=== PATIENT | female | born 1940 | race Caucasian/White ===

== ENCOUNTER 2024-02-12 12:40 | Emergency (ER) | payer OTHER, SELFPAY ==
[2024-02-12 13:09] VITALS: BP 130/50
[2024-02-12 13:51] LABS: % Basophils 0.3 % (0-2); % Eosinophils 0.9 % (0-6); % Immature Granulocytes 0.3 % (0-0.5); % Lymphocytes 19.2 % (20.5-51.1); % Monocytes 8.7 % (1.7-9.3); % Neutrophils 70.6 % (42.2-75.2); Absolute Eosinophils 0.1 10^3/uL (0-0.7); Absolute Lymphocytes 1.3 10^3/uL (1.2-3.4); Absolute Monocytes 0.6 10^3/uL (0.1-0.6); Absolute Neutrophils 4.6 10^3/uL (1.4-6.5); Hematocrit 39.9 % (37.0-47.0); Hemoglobin 13.5 g/dL (12.0-16.0); Mean Corp Hgb Conc. 33.8 g/dL (33.0-37.0); Mean Corpuscular Hgb 31.6 pg (27.0-31.0); Mean Corpuscular Volume 93.4 fL (81.0-99.0); Mean Platelet Volume 10.7 fL (7.4-10.4); Nucleated Red Blood Cells % 0 %; Platelet Count 224 10^3/uL (130-400); Red Blood Cell Count 4.27 10^6/uL (4.20-5.40); Red Cell Dist. Width 13.5 % (11.5-14.5); White Blood Cell Count 6.5 10^3/uL (4.8-10.8)
[2024-02-12 14:08] LABS: ALT (SGPT) 20 U/L (0-35); AST (SGOT) 34 U/L (14-36); Albumin 4.3 g/dl (3.5-5.0); Alkaline Phosphatase 65 U/L (38-126); Blood Urea Nitrogen 16 mg/dl (7-17); Calcium 9.2 mg/dl (8.4-10.2); Carbon Dioxide 24 mmol/L (22-30); Chloride 100 mmol/L (98-107); Glucose 103 mg/dl (70-99); Potassium 4.5 mmol/L (3.5-5.1); Sodium 133 mmol/L (135-145); Total Bilirubin 0.4 mg/dl (0.2-1.3); Total Protein 6.8 g/dl (6.3-8.2); eGFR > 60.00
[2024-02-12 15:09] VITALS: BMI 25.4
[2024-02-12 15:38] LABS: COVID-19 Antigen Negative (Negative)
--- NOTE | 2024-02-12 16:39 | ED.GENMED ---
History of Present Illness
General
Chief Complaint: Cold/Flu/URI Symptoms
Source: patient
Exam Limitations: none
Time Seen by Provider: 02/12/24 14:16
Nursing documentation reviewed up to this point in time: agreed with
History of Present Illness
History of Present Illness:
pt is a 83 y/o F with h/o GERD
otherwise healthy
lives with , here with sister
nearly 2 weeks uri sxs, sore throat, cough; doesn'tknow if she ever had a temp but had some chills
went to urgent care 5 days ago and said they did 'nothing for me.' no testing
she called her PCP the following day who didn't want her to come into the offic ebecause she was sick so they spoke with her over the phone and called in augmentin
pt has been taking it
she does feel a little better now than she has all week but still her sister isisted that she come in to be seen
no vomiting, diarrhea
maybe some mild forgetfulness
denies cp, ,sob
Past History
Past History
ED Past Medical History: None
ED Past Surgical History: None
Social History
Tobacco: Non-smoker
Alcohol: None
Drug: None
Personal:
Living: with family
Review of Systems
Review of Systems
Allergies reviewed?: Yes
All Other Systems: Not applicable
Phy Exam
Physical Exam
Physical Exam:
GENERAL: Alert , in no apparent distress
EYE: pupils equal and reactive
NECK: Supple
ENT: b/l TM s clear, pharynx erythematous but no tonsillar hypertrophy or exudates
CARDIAC: Regular rate and rhythm, no edema
LUNGS: Clear breath sounds bilaterally, no acute respiratory distress, no wheezes/rales/rhonchi, occ cough
ABDOMEN: Soft, without focal tenderness, no r/g, no cvat, normal bowel sounds
NEUROLOGICAL: Alert and oriented, no focal neuro deficits
SKIN: Warm and dry, skin intact.
MUSCULOSKELETAL: No edema, well perfused.
PSYCH: Normal and appropriate interaction.
Course
Orders/Labs/Results
Orders:
Orders
02/12/24 13:12
Electrocardiogram (*1) Urgent
Reason for Study: Other
Other Reason for Exam: uri s/s for the last two wks
CXR2 [CR Chest - 2 Views ] Urgent
Comment:
Reason For Exam: uri s/s for the last two wks
02/12/24 13:13
EKG- Treatment ONCE
02/12/24 13:22
Complete Blood Count/With Diff Urgent
Comprehensive Metabolic Panel Urgent
02/12/24 15:08
COVID-19 Antigen Urgent
Source: Nasal Swab
Influenza A+B Rapid Molecular Urgent
STEPHANIE Source: Nasal Swab
Specimen Description:
02/12/24 17:03
Azithromycin [Zithromax] 500 mg PO NOW STA
Abnormal Lab Results
02/12/24
13:22
MCH 31.6 H pg
(27.0-31.0)
MPV 10.7 H fL
(7.4-10.4)
Lymphocytes % 19.2 L %
(20.5-51.1)
Sodium 133 L mmol/L
(135-145)
Glucose 103 H mg/dl
(70-99)
02/12/24 13:22
02/12/24 13:22
Vital Signs
Initial and Last Documented VS:
Initial Vital Signs
Temp Pulse Resp BP Pulse Ox
36.9 C 89 16 130/50 98
02/12/24 13:09 02/12/24 13:09 02/12/24 13:09 02/12/24 13:09 02/12/24 13:09
Last Documented Vital Signs
Temp Pulse Resp BP Pulse Ox
36.9 C 86 18 151/69 96
02/12/24 13:09 02/12/24 16:50 02/12/24 16:50 02/12/24 16:50 02/12/24 16:50
MDM/Problems Addressed
Differential Diagnosis Includes:
pneumonia, flu covid
MDM/Problems Addressed:
83 y/o F fairly healthy
uri sx x 2 weeks
went to and they ddin't do any testing
3 days ago got abx from her doctor over the phone augmentin
has felt still crummy but actually a little better today than other days but sister is concerned that she is a little confusedmore than usual and just wanted her checked out
pt has not had any sob
She denies chest pain and has not had a recent fever. She has just felt mostly wiped out. On exam the patient is nontoxic-appearing, awake and alert, occasionally answers a question and then corrects herself appropriately but otherwise is not
confused, her lungs sound like she has got crackles in her right base she is not in any respiratory distress. Patient's white count is normal. Her sodium is 133, BUN and creatinine are normal, and her flu was positive for influenza A. Patient's
chest x-ray shows a right lower lobe infiltrate. Discussed with ED attending, she has been on Augmentin for several days already. Patient is claiming that clinically she feels better today and that she is turning the corner. So we felt it was
reasonable to add Zithromax and continue the Augmentin and give her strict return precautions. Her sister will help make sure to check on her and bring her back if she gets worse
*Critical Care Note
Total Time (30-74mins, 75-104mins- exclusive of procedures): Not Applicable
ED Attending Note
-
Portions of this chart may have been created with voice recognition software.� Occasional wrong word or��sound alike� substitutions may have occurred due to the inherent limitations of voice recognition software.
Discharge Plan
Departure
Patient Disposition: Home (Routine Discharge)
Date of Disposition: 02/12/24
Time of Disposition: 17:06
Patient with high blood pressure during this ER visit?: No
Condition: Fair
Covid-19: Negative COVID-19
Discharge Problem:
Influenza A, Pneumonia
Instructions: Pneumonia in adults - Discharge instructions, Flu in adults - ED discharge instructions
Prescriptions:
New
azithromycin 250 mg tablet
250 mg PO DAILY 4 Days Qty: 4 0RF
Referrals:
Garland Barreto MD [Family Provider] - Follow up in 2-3 days
Activity Restrictions/Additional Instructions:
YOU TESTED POSITIVE FOR THE FLU
YOUR CHEST XRAY ALSO SHOWS A PNEUMONIA IN YOUR RIGHT LOWER LUNG
YOUR OXYGEN LEVEL WAS GOOD AND YOUR BLOOD WORK WAS REASSURING
CONTINUE TH EAUGMENTIN YOU WERE ALREADY TAKING AND ADD ZITHROMAX ONCE A DAY FOR 4 MORE DAYS STARTING TOMORROW
STYA HYDRATED
MAKE SURE YOU HAVE LOW THRESHOLD TO RETURN FOR: WORSENING BREATHING PROBLEMS, LETHARGY, NEW FEVER, VOMITING, DEHYDRTAION, CONFUSION, WEAKNESS ETC
Interventions
Interventions:
*Risk Screen - Suicide Last Done: 02/12/24 13:09
*General Assessment Last Done: 02/12/24 15:11
*Neglect/Abuse Screening Last Done: 02/12/24 13:09
*ED COVID-19 Vaccine History Last Done: 02/12/24 15:11
*Nursing Disposition Last Done: 02/12/24 17:35
ED- Pulmonary Assessment Last Done: 02/12/24 16:51
Discharge Date and Time
Discharge Date/Time: 02/12/24 17:36
Print Language: GERMAN
[2024-02-12 16:50] VITALS: BP 151/69
[2024-02-12] MEDS: ZITHROMAX 500 MG PO (17:16)
== END 2024-02-12 17:36 | disposition home or self-care (01) ==
LOC: EMR 12:40
PROVIDERS: Emergency Medicine; Physician Assistant; EMERGENCY PHYSICIAN Emergency Medicine; FAMILY PHYSICIAN Family Medicine
DX: J10.00 Influenza due to other identified influenza virus with unspecified type of pneumonia (principal); J18.9 Pneumonia, unspecified organism; Z11.52 Encounter for screening for COVID-19; K21.9 Gastro-esophageal reflux disease without esophagitis
CPT/HCPCS: 99283; 71046; 80053; 85025; 87502; 87811; 93005